=== PATIENT | male | born 1965 | race Caucasian/White ===

== ENCOUNTER 2017-11-14 12:46 | Emergency (ER) | payer OTHER ==
[2017-11-14] MEDS ORDERED: Sodium Chloride 0.9% 1,000 ML IV ONE (13:36)
[2017-11-14 14:13] LABS: CHLORIDE,CL 107 mmol/L (98-110); SODIUM,NA 143 mmol/L (136-146)
--- NOTE | 2017-11-14 14:26 | EDM.PDOC ---
ED HPI GENERAL MEDICAL PROBLEM - General Chief Complaint: General Stated Complaint: FLU-LIKE SYMPTOMS Time Seen by Provider: 11/14/17 12:51 Source of Information: Reports: Patient History Limitations: Reports: No Limitations - History of Present Illness INITIAL COMMENTS - FREE TEXT/NARRATIVE: HISTORY AND PHYSICAL: History of present illness: [Patient comes to the emergency room complaining of 3 days of vomiting and diarrhea. Complains of feeling dizzy today following several episodes of vomiting. 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 States that he feels fatigued and not his nausea has resolved. Has a history of hypertension and was recently diagnosed with hypokalemia. He has been taking a [id number] potassium supplement daily and has not had his potassium rechecked. He denies fever and chills. No sore throat runny nose or cough. Denies chest pain shortness of breath and difficulty breathing. No chest or head congestion. Appetite has been diminished. Nausea and vomiting for the past couple of days but feels it has improved today. Admits to some loose stools. No blood in his emesis or stools. No difficulty urinating. Denies body aches and pains.] Review of systems: As per history of present illness and below otherwise all systems reviewed and negative. Past medical history: As per history of present illness and as reviewed below otherwise noncontributory. Surgical history: As per history of present illness and as reviewed below otherwise noncontributory. Social history: No reported history of drug or alcohol abuse. Family history: As per history of present illness and as reviewed below otherwise noncontributory. Physical exam: HEENT: Atraumatic, normocephalic. Oral mucous membranes are pink and moist. TMs are pearly [place] and without erythema. Neck supple, no lymphadenopathy. Lungs: Clear to auscultation, breath sounds equal bilaterally. No wheezing, crackles or rales. Heart: S1S2, regular rate and rhythm. Abdomen: Bowel sounds are normoactive throughout. Abdomen is soft, nondistended , nontender. Negative for masses guarding or rebound. Pelvis: Stable nontender. Genitourinary: Deferred. Rectal: Deferred. Extremities: Atraumatic, negative for cords or calf pain. Neurovascular unremarkable. Neuro: Awake, alert, oriented. Motor and sensory unremarkable throughout. Exam nonfocal. Diagnostics: [CBC, CMP] Therapeutics: [1 L normal saline] Impression: [Viral syndrome Elevated liver enzymes Hypokalemia, now improved] Plan: [Discussed with patient that his labs are within normal limits other than mildly elevated LFTs. Recommend he establish care with local PCP and follow-up regarding these labs. We discussed that his symptoms are likely viral in nature and that he should rest and push fluids for the next day or 2. Strict return precautions are reviewed with the patient and he is in agreement with today's plan.] Definitive disposition and diagnosis as appropriate pending reevaluation and review of above. Middle Abdominal Pain Score (Numeric/FACES): 5 - Related Data Allergies Allergy/AdvReac Type Severity Reaction Status Date / Time No Known Allergies Allergy Verified 11/14/17 13:01 Home Meds: Home Meds Lisinopril 20 mg PO DAILY 11/14/17 [History] Potassium Chloride 20 meq PO DAILY 11/14/17 [History] Past Medical History HEENT History: Reports: None Cardiovascular History: Reports: Hypertension Respiratory History: Reports: None Gastrointestinal History: Reports: None Genitourinary History: Reports: None Musculoskeletal History: Reports: None Neurological History: Reports: None Psychiatric History: Reports: None Endocrine/Metabolic History: Reports: None Hematologic History: Reports: None Immunologic History: Reports: None Oncologic (Cancer) History: Reports: None Dermatologic History: Reports: None - Infectious Disease History Infectious Disease History: Reports: None - Past Surgical History Head Surgeries/Procedures: Reports: None Male Surgical History: Reports: None Social & Family History - Tobacco Use Smoking Status *Q: Never Smoker Second Hand Smoke Exposure: No - Caffeine Use Caffeine Use: Reports: None - Alcohol Use Days Per Week of Alcohol Use: 2 Number of Drinks Per Day: 3 Total Drinks Per Week: 6 - Recreational Drug Use Recreational Drug Use: No ED ROS GENERAL - Review of Systems Review Of Systems: ROS reveals no pertinent complaints other than HPI. ED EXAM, GENERAL - Physical Exam Exam: See Below Course - Vital Signs Last Recorded V/S: Last Vital Signs Temp 99.6 F 11/14/17 14:42 Pulse 70 11/14/17 14:42 Resp 18 11/14/17 14:42 BP 129/87 11/14/17 14:42 Pulse Ox 97 11/14/17 14:42 - Orders/Labs/Meds Labs: Laboratory Tests 11/14/17 11/14/17 Range/Units 13:44 13:44 WBC 9.04 (4.0-11.0) K/uL RBC 4.62 (4.50-5.90) M/uL Hgb 13.6 (13.0-17.0) g/dL Hct 39.0 (38.0-50.0) % MCV 84.4 (80.0-98.0) fL MCH 29.4 (27.0-32.0) pg MCHC 34.9 (31.0-37.0) g/dL RDW Std Deviation 40.6 (28.0-62.0) fl RDW Coeff of Bhavana 13 (11.0-15.0) % Plt Count 388 (150-400) K/uL MPV 8.80 (7.40-12.00) fL Neut % (Auto) 72.2 (48.0-80.0) % Lymph % (Auto) 20.2 (16.0-40.0) % Vernon % (Auto) 7.3 (0.0-15.0) % Eos % (Auto) 0.2 (0.0-7.0) % Baso % (Auto) 0.1 (0.0-1.5) % Neut # (Auto) 6.5 H (1.4-5.7) K/uL Lymph # (Auto) 1.8 (0.6-2.4) K/uL Vernon # (Auto) 0.7 (0.0-0.8) K/uL Eos # (Auto) 0.0 (0.0-0.7) K/uL Baso # (Auto) 0.0 (0.0-0.1) K/uL Sodium 143 (136-146) mmol/L Potassium 3.6 (3.5-5.1) mmol/L Chloride 107 (98-110) mmol/L Carbon Dioxide 21 (21-31) mmol/L BUN 12 (6.0-23.0) mg/dL Creatinine 0.8 (0.6-1.5) mg/dL Est Cr Clr Drug Dosing 99.69 mL/min Estimated GFR (MDRD) > 60.0 ml/min Glucose 107 (60-110) mg/dL Calcium 8.4 L (8.8-10.8) mg/dL Total Bilirubin 0.9 (0.1-1.5) mg/dL AST 84 H (5-40) IU/L ALT 125 H (8-54) IU/L Alkaline Phosphatase 62 (40-150) Total Protein 6.3 (6.0-8.0) g/dL Albumin 4.0 (3.5-5.0) g/dL Globulin 2.3 (2.0-3.5) g/dL Albumin/Globulin Ratio 1.7 (1.3-2.8) Meds: Medications Discontinued Medications Generic Name Dose Route Start Last Admin Trade Name Freq PRN Reason Stop Dose Admin Sodium Chloride 1,000 mls @ 999 mls/hr 11/14/17 13:36 11/14/17 15:32 Normal Saline IV 11/14/17 14:36 999 mls/hr STAT ONE Administration Departure - Departure Time of Disposition: 14:30 Disposition: Home, Self-Care 01 Condition: Good Clinical Impression: Viral syndrome - Discharge Information Instructions: Viral Respiratory Infection, [id number] Referrals: PCP,None [Primary Care Provider] - Forms: ED Department Discharge Additional Instructions: The following information is given to patients seen in the emergency department who are being discharged to home. This information is to outline your options for follow-up care. We provide all patients seen in our emergency department with a follow-up referral. The need for follow-up, as well as the timing and circumstances, are variable depending upon the specifics of your emergency department visit. If you don't have a primary care physician on staff, we will provide you with a referral. We always advise you to contact your personal physician following an emergency department visit to inform them of the circumstance of the visit and for follow-up with them and/or the need for any referrals to a consulting specialist. The emergency department will also refer you to a specialist when appropriate. This referral assures that you have the opportunity for follow-up care with a specialist. All of these measure are taken in an effort to provide you with optimal care, which includes your follow-up. Under all circumstances we always encourage you to contact your private physician who remains a resource for coordinating your care. When calling for follow-up care, please make the office aware that this follow-up is from your recent emergency room visit. If for any reason you are refused follow-up, please contact the [facility] emergency department at and asked to speak to the emergency department charge nurse. [facility] [address] [place] [id number] Establish care with a local primary care provider at the clinic listed above in follow-up there in 48-72 hours. Push fluids, get plenty of rest. Return to ER as needed as discussed.
== END 2017-11-14 14:42 | disposition home or self-care (01) ==
LOC: MW.ED 12:46
DX: B34.9 Viral infection, unspecified (principal); E87.6 Hypokalemia; R74.8 Abnormal levels of other serum enzymes; I10 Essential (primary) hypertension; Z79.899 Other long term (current) drug therapy
CPT/HCPCS: 36415; 80053; 85025; 96360; 99283; J7040